=== PATIENT | female | born 1970 | race Hispanic/Latino ===

== ENCOUNTER 2017-02-01 15:16 | Day surgery (SDC) | payer OTHER ==
[~2017-02-01 15:16] MED LIST: AMLO2.5T PO; CABE0.5T7 PO; CHOL100043 PO; GABA-502 PO; LEVO25TA5 PO; LORA0.5T PO; MELO-253 PO; METF1000 PO; RANI150C4 PO; TOPI-59 PO
[2017-02-01] MEDS ORDERED: MetoCLOpramide 5 mg/mL 2 mL Inj IVPUSH ONE (16:15)
[2017-02-01] MEDS ORDERED: 0.9% Sodium Chloride 500 ML IV SCH (17:45)
[2017-02-01 17:52] VITALS: BP 139/85; PULSE 79; RESP 16; O2SAT 97
--- NOTE | 2017-02-01 19:09 | NUR ---
Migraine Patient arrived to unit with family. IV initiated. Urine spec sent ~ negative. IV fluids started. Medications given as ordered. Fluids followed up. Patient reports headache is improved, 2/. Resting with eyes closed during treatment. Left unit in stable condition. to drive her home.
== END 2017-02-01 23:59 | disposition home or self-care (01) ==
LOC: MOCO 15:16
PROVIDERS: ATTEND Psychiatry & Neurology Neurology
DX: G43.719 Chronic migraine without aura, intractable, without status migrainosus (principal); G43.901 Migraine, unspecified, not intractable, with status migrainosus
CPT/HCPCS: 81025; 96361; 96374; 96375; J1200; J1885; J2765; J7040